=== PATIENT | female | born 1985 | race African-American/Black ===

== ENCOUNTER 2017-06-10 11:25 | Emergency (ER) | payer SELFPAY ==
[2017-06-10 11:32] VITALS: BP 110/82
[2017-06-10] MEDS ORDERED: CEPHALEXIN 500 MG CAPSULE PO ONE (12:07)
[2017-06-10] MEDS ORDERED: SULFAMETHOXAZOLE/TRIMETHOPRIM 800-160 MG TABLET PO ONE (12:07)
[2017-06-10] MEDS ORDERED: ACETAMINOPHEN 325 MG TABLET PO ONE (12:24)
--- NOTE | 2017-06-10 12:32 | ER Document Report ---
ED Skin Rash/Insect Bite/Abscs - General Chief Complaint: Abscess Stated Complaint: POSSIBLE INSECT BITE Time Seen by Provider: 06/10/17 11:41 TRAVEL OUTSIDE OF THE [place] IN LAST 30 DAYS: No - HPI Patient complains to provider of: Possible insect bite - multiple sites over her legs and back. patient states she has been sleeping outside Onset: Other - she states she just noticied thi morning Skin Character: Papules - Related Data Allergies/Adverse Reactions: No Known Allergies Allergy (Unverified 06/10/17 11:32) Past Medical History - Social History Smoking Status: Current Every Day Smoker Chew tobacco use (# tins/day): No Frequency of alcohol use: None Drug Abuse: Marijuana Family History: Reviewed & Not Pertinent Renal/ Medical History: Denies: Hx Peritoneal Dialysis Surgical Hx: Negative - Immunizations Hx Diphtheria, Pertussis, Tetanus Vaccination: Yes Review of Systems - Review of Systems Constitutional: No symptoms reported EENT: No symptoms reported Cardiovascular: No symptoms reported Respiratory: No symptoms reported Gastrointestinal: No symptoms reported Genitourinary: No symptoms reported Musculoskeletal: No symptoms reported Skin: See HPI Neurological/Psychological: No symptoms reported -: Yes All other systems reviewed and negative Physical Exam - Vital signs Vitals: Temp Pulse Resp BP Pulse Ox 98.4 F 96 18 110/82 100 06/10/17 11:31 06/10/17 11:31 06/10/17 11:31 06/10/17 11:31 06/10/17 11:31 - General General appearance: Appears well, Alert In distress: None - Respiratory Respiratory status: No respiratory distress Chest status: Nontender Breath sounds: Normal Chest palpation: Normal - Cardiovascular Rhythm: Regular Heart sounds: Normal auscultation, S1 appreciated, S2 appreciated Murmur: No Gallop: None auscultated Pulses: Normal: Radial, Dorsalis pedis Normal capillary refill: Yes - Extremities General upper extremity: Normal inspection, Nontender, Normal color, Normal ROM , Normal strength, Normal temperature General lower extremity: Normal inspection, Nontender, Normal color, Normal ROM , Normal strength, Normal temperature, Normal weight bearing - Neurological Neuro grossly intact: Yes Cognition: Normal Orientation: AAOx4 [place] Coma Scale Eye Opening: Spontaneous [place] Coma Scale Verbal: Oriented [place] Coma Scale Motor: Obeys Commands [place] Coma Scale Total: 15 - Skin Skin Temperature: Warm Skin Moisture: Dry Skin Color: Normal Skin irregularity: Rash Location of irregularity: Back, Extremities Character of irregularity: Papular. negative: Vesicular, Erythematous Irregularity with: Tenderness. negative: Swelling, Warmth, Induration Course - Re-evaluation Re-evalutation: 06/10/17 20:42 Patient is a 31-year-old female hemodynamic stable, no distress afebrile. Patient presents with possible MRSA cellulitis. Will treat with p.o. Keflex and Bactrim. Given that patient is homeless without income. Case management has organized for her to get her antibiotics covered at office [facility]. Patient agrees with plan. Stable for discharge. - Vital Signs Vital signs: Temp Pulse Resp BP Pulse Ox 98.4 F 96 16 110/82 100 06/10/17 11:31 06/10/17 11:31 06/10/17 11:37 06/10/17 11:31 06/10/17 11:31 Discharge - Discharge Clinical Impression: Cellulitis Qualifiers: Site of cellulitis: unspecified site Qualified Code(s): L03.90 - Cellulitis, unspecified Bite, insect Qualifiers: Encounter type: initial encounter Qualified Code(s): W57.XXXA - Bitten or stung by nonvenomous insect and other nonvenomous arthropods, initial encounter Condition: Good Disposition: HOME, SELF-CARE Instructions: Trimethoprim-Sulfa ([facility]), Cephalexin ([facility]), MRSA Cellulitis ([facility]) Additional Instructions: Please take your antibiotics as instructed You can take motrin as needed for pain Referrals: PHARMACY, DR FIELDS [Other] - 06/12/17 9:00 am (Please go to the pharmacy and advise who you are. The hospital will cover as a one time courtesy only your 2 antibiotics. Keflex and Bactrim. The pharmacy closes at 1pm on 06/10/17, and they will be closed all day on 06/11/17. If you are unable to pick them up prior to 1:00pm on 06/10/17, then you can roller picker your prescriptions on 06/12/17 anytime from 9:00am to 5:00pm) [facility] [NO LOCAL MD] - Follow up as needed (Free clinic)
== END 2017-06-10 13:10 | disposition home or self-care (01) ==
LOC: ER 11:25
DX: T14.8 Other injury of unspecified body region (principal); L03.90 Cellulitis, unspecified; W57.XXXA Bitten or stung by nonvenomous insect and other nonvenomous arthropods, initial encounter; Z59.0 Homelessness; F17.200 Nicotine dependence, unspecified, uncomplicated
CPT/HCPCS: 87070; 87205; 99281